=== PATIENT | female | born 1970 | race Caucasian/White ===

== ENCOUNTER 2017-07-25 17:03 | Emergency (ER) | payer MEDICAID ==
[~2017-07-25] VITALS: Ht 165.1 cm; Wt 77.0 kg
[2017-07-25] MEDS ORDERED: METR250 PO (17:19)
[2017-07-25] MEDS ORDERED: METR500 PO (18:44)
[2017-07-25] MEDS ORDERED: FLUCONAZOLE 150 MG TABLET PO ONE (18:45)
[2017-07-25 19:20] VITALS: BP 142/86
== END 2017-07-25 19:22 | disposition home or self-care (01) ==
LOC: EMS 17:06
DX: B37.3 Candidiasis of vulva and vagina (principal); I10 Essential (primary) hypertension
CPT/HCPCS: 99283

== ENCOUNTER 2019-05-17 19:59 | Emergency (ER) | payer MEDICAID, OTHER ==
[~2019-05-17] VITALS: Ht 167.6 cm; Wt 65.0 kg
[~2019-05-17 19:59] MED LIST: METR500 PO
[2019-05-17] MEDS ORDERED: SULFAMETHOX/TRIMETH DS 800-160 MG/TABLET PO ONE (21:45)
[2019-05-17] MEDS ORDERED: PERTUSS(ACELL),DIPH,TET VAC/PF 0.5 ML VIAL IM ONE (21:45)
[2019-05-17 22:39] VITALS: BP 132/78
== END 2019-05-17 22:57 | disposition home or self-care (01) ==
LOC: EMS 20:00
DX: S91.311A Laceration without foreign body, right foot, initial encounter (principal); L08.9 Local infection of the skin and subcutaneous tissue, unspecified; W25.XXXA Contact with sharp glass, initial encounter; Y93.89 Activity, other specified; Y92.89 Other specified places as the place of occurrence of the external cause; Y99.8 Other external cause status
CPT/HCPCS: 90471; 90715